=== PATIENT | female | born 1960 | race Caucasian/White ===

== ENCOUNTER → 2017-08-08 | Outpatient (CLI) | payer BC ==
--- NOTE | 2017-08-08 17:31 | RAD ---
DATE: 08/08/2017. EXAM: MAMMO NITHYA SCREENING BILATERAL. HISTORY: Routine mammographic screening. COMPARISON: 07/03/2016, 06/16/2015. This study was interpreted with the benefit of Computerized Aided Detection (CAD). FINDINGS: The breast parenchyma shows scattered fibroglandular densities. Breast parenchyma level B.. There are no suspicious masses, microcalcifications or architectural distortion. Small nodules laterally on the right and posteriorly inferiorly on the left are stable. Scattered calcifications are benign. BI-RADS CATEGORY: 2 BENIGN FINDING(S). RECOMMENDED FOLLOW-UP: 12M 12 MONTH FOLLOW-UP. PQRS compliance statement: Patient information was entered into a reminder system with a target due date 08/08/2018 for the next mammogram. Mammography is a sensitive method for finding small breast cancers, but it does not detect them all and is not a substitute for careful clinical examination. A negative mammogram does not negate a clinically suspicious finding and should not result in delay in biopsying a clinically suspicious abnormality. "Our facility is accredited by the [employer] Mammography [employer]."
== END | disposition home or self-care (01) ==
LOC: MAMMO 07:45
PROVIDERS: ATTEND Specialist
DX: Z12.31 Encounter for screening mammogram for malignant neoplasm of breast (principal)
CPT/HCPCS: 77063; G0202; 77067

== ENCOUNTER → 2018-10-08 | Outpatient (CLI) | payer BC ==
--- NOTE | 2018-10-08 15:01 | RAD ---
DATE: 10/08/2018 11:00 AM EXAM: MAMMO NITHYA SCREENING BILATERAL HISTORY: routine screening evaluation COMPARISON: Prior mammographic imaging dating back to 06/16/15 Bilateral CC and MLO views of the breasts were performed. Bilateral breast tomosynthesis was performed in CC and MLO projections. This study was interpreted with the benefit of Computerized Aided Detection (CAD ). Breast Density: The breast parenchyma shows scattered fibroglandular densities. Breast parenchyma level B. FINDINGS: Benign calcifications are present. The parenchymal pattern appears stable. No suspicious masses, microcalcifications or architectural distortion is present to suggest malignancy in either breast. Nodularity at the inferior, lateral aspect of the right breast is stable to at least 06/16/2015. The visualized axillae are unremarkable. IMPRESSION: No mammographic evidence of malignancy. BI-RADS CATEGORY: 2 BENIGN FINDING(S) RECOMMENDED FOLLOW-UP: 12M 12 MONTH FOLLOW-UP Annual screening mammography is recommended, unless clinically indicated sooner based on symptoms or change in physical exam. PQRS compliance statement: Patient information was entered into a reminder system with a target due date 10/08/2019 for the next mammogram. Mammography is a sensitive method for finding small breast cancers, but it does not detect them all and is not a substitute for careful clinical examination. A negative mammogram does not negate a clinically suspicious finding and should not result in delay in biopsying a clinically suspicious abnormality. "Our facility is accredited by the [employer] Mammography [employer]." MARITAD
== END | disposition home or self-care (01) ==
LOC: MAMMO 09:03
PROVIDERS: ATTEND Specialist
DX: Z12.31 Encounter for screening mammogram for malignant neoplasm of breast (principal)
CPT/HCPCS: 77063; 77067

== ENCOUNTER 2019-12-28 19:26 | Emergency (ER) | payer BC ==
[~2019-12-28] VITALS: Ht 172.7 cm; Wt 100.0 kg
[2019-12-28] MEDS ORDERED: ONDANSETRON ODT 4 MG TAB.RAPDIS PO ONE (20:15)
[2019-12-28] MEDS ORDERED: HYDROcodone/APAP 5/325MG 1 TAB TABLET PO ONE (20:15)
--- NOTE | 2019-12-28 21:05 | RAD ---
EXAM: AP, oblique and lateral views right knee DATE: 12/28/2019 7:26 PM INDICATION: Right knee pain, fall, injury COMPARISON: No Prior FINDINGS/ IMPRESSION: There is an oblique fracture through the distal right femur extending from the medial distal femoral diametaphysis extending into the intercondylar notch without significant displacement. Small to moderate lipohemarthrosis. Electronically signed by: Jerry Gooden MD (12/28/2019 9:02 PM) [id number]
[2019-12-28 22:15] LABS: BASO % 0 % (0-3); EOS % 0 % (0-3); HEMATOCRIT 43.3 % (36.0-47.0); HEMOGLOBIN 14.3 g/dL (12.0-15.5); LYMPH # 0.9 x10^3/uL (1.0-4.8); LYMPH % 10 % (24-48); MEAN CORPUSCULAR HEMOGLOBIN 29 pg (25-35); MEAN CORPUSCULAR HGB CONC 33 g/dL (31-37); MEAN CORPUSCULAR VOLUME 88 fL (79-100); MONO # 0.6 x10^3/uL (0.0-1.1); MONO % 6 % (0-9); NEUT # 7.8 x10^3uL (1.8-7.7); NEUT % 84 % (31-73); PLATELET COUNT 235 x10^3/uL (140-400); RED CELL DISTRIBUTION WIDTH 13.4 % (11.5-14.5); WHITE BLOOD COUNT 9.3 x10^3/uL (4.0-11.0)
[2019-12-28 22:28] VITALS: BP 128/74
[2019-12-28 22:31] LABS: CALCIUM 9.2 mg/dL (8.5-10.1); GFR 56.7
--- NOTE | 2019-12-28 22:37 | PHYS DOC ---
Past History Past Medical History: No Pertinent History Past Surgical History: Hysterectomy Alcohol Use: Rarely Adult General Chief Complaint Chief Complaint: LOWEREXTREMITY INJURY HPI HPI Patient is a 59-year-old female presenting with knee pain. She slipped down 6 steps in her house she was having trouble walking she just lost missed a step no other past medical history no daily medications are otherwise healthy did not hit her head no neck pain no back pain just the knee pain no hip pain she tells me. Pain is moderate to severe unable to ambulate Review of Systems Review of Systems Constitutional: Denies fever or chills [] Eyes: Denies change in visual acuity, redness, or eye pain [] HENT: Denies nasal congestion or sore throat [] Respiratory: Denies cough or shortness of breath [] Neurologic: Denies headache, focal weakness or sensory changes [] Endocrine: Denies polyuria or polydipsia [] All other systems were reviewed and found to be within normal limits, except as documented in this note. Current Medications Current Medications Current Medications Medications (Trade) Dose Ordered Sig/Naomi Start Time Stop Time Status Last Admin Dose Admin Acetaminophen/ Hydrocodone Bitart (Lortab 5/325) 2 tab 1X ONCE 12/28/19 20:15 12/28/19 20:52 DC 12/28/19 20:15 2 TAB Fentanyl Citrate (Fentanyl 2ml Vial) 50 mcg 1X ONCE 12/28/19 21:30 12/28/19 21:35 DC 12/28/19 21:30 50 MCG Ondansetron HCl (Zofran Odt) 4 mg 1X ONCE 12/28/19 20:15 12/28/19 20:52 DC 12/28/19 20:15 4 MG Allergies Allergies Allergies Coded Allergies Type Severity Reaction Last Updated Verified No Known Drug Allergies 12/28/19 No Physical Exam Physical Exam Constitutional: Well developed, well nourished, no acute distress, non-toxic appearance. [] HENT: Normocephalic, atraumatic, bilateral external ears normal, oropharynx moist, no oral exudates, nose normal. [] Eyes: PERRLA, EOMI, conjunctiva normal, no discharge. [] Neck: Normal range of motion, no tenderness, supple, no stridor. [] Cardiovascular:Heart rate regular rhythm, no murmur [] Lungs & Thorax: Bilateral breath sounds clear to auscultation [] Abdomen: Bowel sounds normal, soft, no tenderness, no masses, no pulsatile masses. [] Skin: Warm, dry, no erythema, no rash. [] Back: No tenderness, no CVA tenderness. [] Extremities: Tenderness to palpation deformity noted at the right knee as well as just above the right knee. Pedal pulses intact distally sensation is intact distally the compartments are soft. [] Neurologic: Alert and oriented X 3, normal motor function, normal sensory function, no focal deficits noted. [] Psychologic: Affect normal, judgement normal, mood normal. [] Current Patient Data Vital Signs Vital Signs Date Time Temp Pulse Resp B/P (MAP) Pulse Ox O2 Delivery O2 Flow Rate FiO2 12/28/19 22:28 81 16 128/74 (92) 98 Room Air 12/28/19 20:28 98.2 Lab Results Laboratory Tests Test 12/28/19 21:45 White Blood Count 9.3 x10^3/uL (4.0-11.0) Red Blood Count 4.90 x10^6/uL (3.50-5.40) Hemoglobin 14.3 g/dL (12.0-15.5) Hematocrit 43.3 % (36.0-47.0) Mean Corpuscular Volume 88 fL (79-100) Mean Corpuscular Hemoglobin 29 pg (25-35) Mean Corpuscular Hemoglobin Concent 33 g/dL (31-37) Red Cell Distribution Width 13.4 % (11.5-14.5) Platelet Count 235 x10^3/uL (140-400) Neutrophils (%) (Auto) 84 % (31-73) H Lymphocytes (%) (Auto) 10 % (24-48) L Monocytes (%) (Auto) 6 % (0-9) Eosinophils (%) (Auto) 0 % (0-3) Basophils (%) (Auto) 0 % (0-3) Neutrophils # (Auto) 7.8 x10^3uL (1.8-7.7) H Lymphocytes # (Auto) 0.9 x10^3/uL (1.0-4.8) L Monocytes # (Auto) 0.6 x10^3/uL (0.0-1.1) Eosinophils # (Auto) 0.0 x10^3/uL (0.0-0.7) Basophils # (Auto) 0.0 x10^3/uL (0.0-0.2) Sodium Level 142 mmol/L (136-145) Potassium Level 4.0 mmol/L (3.5-5.1) Chloride Level 105 mmol/L (98-107) Carbon Dioxide Level 28 mmol/L (21-32) Anion Gap 9 (6-14) Blood Urea Nitrogen 9 mg/dL (7-20) Creatinine 1.0 mg/dL (0.6-1.0) Estimated GFR (Cockcroft-Gault) 56.7 Glucose Level 108 mg/dL (70-99) H Calcium Level 9.2 mg/dL (8.5-10.1) EKG EKG [] Radiology/Procedures Radiology/Procedures [] Impressions: IMPRESSION: There is an oblique fracture through the distal right femur extending from the medial distal femoral diametaphysis extending into the intercondylar notch without significant displacement. Small to moderate lipohemarthrosis. Electronically signed by: Jerry Gooden MD (12/28/2019 9:02 PM) [id number] DICTATED AND SIGNED BY: JERRY GOODEN MD DATE: 12/28/192101 CC: EMMA TAYLOR MD; CRISTINA DURANT MD ~ Course & Med Decision Making Course & Med Decision Making Pertinent Labs and Imaging studies reviewed. (See chart for details) [] 59-year-old female presenting with oblique fracture distal femur isolated injury I spoke with Dr. Carter who wants the patient to be transferred to [facility] for admission for surgery tomorrow. I spoke with Dr. Huddleston who accepted the patient at 10:15 PM gaVE PT pain meds in er knee immoblizier advised of plan she is agreeable Dragon Disclaimer Dragon Disclaimer This electronic medical record was generated, in whole or in part, using a voice recognition dictation system. Departure Departure: Impression: Primary Impression: Femur fracture Disposition: XFER SHT-TRM HOSP Condition: STABLE Referrals: CRISTINA DURANT MD (PCP) EMMA TAYLOR MD Dec 28, 2019 22:37
--- NOTE | 2019-12-29 00:08 | RAD ---
EXAM: AP and lateral views right femur DATE: 12/28/2019 8:13 PM INDICATION: Right femur pain, fall COMPARISON: No Prior FINDINGS/ IMPRESSION: Oblique fracture distal femur with intra-articular extension is essentially nondisplaced. Mild associated soft tissue swelling. No definite proximal right femoral fracture is seen. Electronically signed by: Jerry Gooden MD (12/29/2019 12:05 AM) [id number]
[2019-12-29] MEDS ORDERED: MORPHINE SULFATE 4 MG/ML DISP.SYRIN. IV ONE (00:30)
[2019-12-29] MEDS ORDERED: ONDANSETRON PF 4 MG/2 ML VIAL. IVP ONE (00:30)
[2019-12-29] MEDS ORDERED: ONDANSETRON PF 4 MG/2 ML VIAL. ONE (00:32)
[2019-12-29] MEDS ORDERED: MORPHINE SULFATE 4 MG/ML DISP.SYRIN. ONE (00:32)
== END 2019-12-29 00:44 | disposition short-term general hospital (02) ==
LOC: ER 19:26
DX: S72.401A Unspecified fracture of lower end of right femur, initial encounter for closed fracture (principal); W10.8XXA Fall (on) (from) other stairs and steps, initial encounter; Y93.89 Activity, other specified; Y92.89 Other specified places as the place of occurrence of the external cause; Y99.8 Other external cause status
CPT/HCPCS: 29505; 36415; 73552; 73562; 80048; 85025; 96374; 96375; 99285; J2270; J2405; J3010; Q0162

== ENCOUNTER → 2020-01-12 | Outpatient (CLI) | payer BC ==
[2019-12-28 22:28] VITALS: BP 128/74
--- NOTE | 2020-01-12 10:09 | RAD ---
Examination: RIGHT FEMUR XRAY History: 2 weeks postoperative status post right femoral fracture Comparison/Correlation: 12/28/2019 right femur x-ray exam Findings: Frontal and lateral views of the right femur were obtained. Plate at the distal medial margin of the right femur is present with multiple associated screws. Oblique fracture is present involving distal femoral shaft and diametaphyseal region at the level of the plate and screws in the interval since the previous exam with no callus formation. There are no suspicious proximal findings. Right hip joint space is adequate. Impression: ORIF of the distal right femoral fracture. There are new fracture lines evident however at the distal right femoral diametaphyseal region since the previous exam of 12/28/2019. This is at the level of the plate and associated screws however. Correlate with surgical history. Electronically signed by: Faheem Barnhart MD (01/12/2020 10:06 AM) [id number]
== END | disposition home or self-care (01) ==
LOC: DXRAD 08:30
PROVIDERS: ATTEND Physician Assistant
DX: S72.491A Other fracture of lower end of right femur, initial encounter for closed fracture (principal); X58.XXXA Exposure to other specified factors, initial encounter; Y93.89 Activity, other specified; Y92.89 Other specified places as the place of occurrence of the external cause; Y99.8 Other external cause status
CPT/HCPCS: 73552

== ENCOUNTER 2020-01-31 12:42 | Emergency (ER) | payer BC ==
[~2020-01-31] VITALS: Ht 172.7 cm; Wt 100.0 kg
[~2020-01-31 12:42] MED LIST: EPINEPHrine SYRINGE 1 MG/10 ML SYRINGE ONE; SODIUM BICARBONATE 50 MEQ/50 ML VIAL. ONE
--- NOTE | 2020-01-31 13:40 | PHYS DOC ---
Past History Past Medical History: No Pertinent History Past Surgical History: Hysterectomy Alcohol Use: Rarely General Adult EDM: Chief Complaint: CPR/FULL ARREST HPI: HPI: 59-year-old female presents via EMS as a CODE BLUE. The patient had a witnessed event at home. She collapsed and family began CPR. When EMS arrived they took over CPR and continued until they reached the hospital. She was given 6 rounds of epinephrine in route. She was intubated prior to arrival. EMS reports good bagging with bilateral breath sounds. The patient was reported to have had knee surgery recently and was not taking her anticoagulant medication as prescribed. No other known acute illness. Patient has no reported history of cardiac or pulmonary disease. Review of Systems: Review of Systems: Unable to perform due to being unresponsive Heart Score: Risk Factors: Risk Factors: DM, Current or recent (<one month) smoker, HTN, HLP, family history of CAD, obesity. Risk Scores: Score 0 - 3: 2.5% MACE over next 6 weeks - Discharge Home Score 4 - 6: 20.3% MACE over next 6 weeks - Admit for Clinical Observation Score 7 - 10: 72.7% MACE over next 6 weeks - Early Invasive Strategies Allergies: Allergies: Allergies Coded Allergies Type Severity Reaction Last Updated Verified No Known Drug Allergies 12/28/19 No Physical Exam: PE: Constitutional: Well developed, well nourished, severe acute distress, chest compression device in place [] [] Eyes: Pupils fixed and dilated, no corneal reflex [] Neck: Normal range of motion [] Cardiovascular: PEA [] Lungs & Thorax: Bilateral breath sounds with bag valve artificial breaths [] Abdomen: soft, no masses, no pulsatile masses. [] Skin: Cool, dusky [] [] Extremities: Right knee in immobilizer, no signs of trauma [] Neurologic: Unresponsive, pupils fixed and dilated, no corneal reflex [] [] EKG: EKG: [] Radiology/Procedures: Radiology/Procedures: [] Course & Med Decision Making: Course & Med Decision Making Pertinent Labs and Imaging studies reviewed. (See chart for details) On arrival, the patient had a chest compression device that was in good position and functioning. Her ET tube appeared to be in place. We had no difficulty bagging. There were bilateral breath sounds. We performed an additional 5 rounds of epinephrine and 3 rounds of bicarb. We got brief periods of an organized heart rhythm, but the patient never had a pulse in the ED. Her total downtime was in excess of 40 minutes. After all of these efforts, it was determined that the patient had . Time of 1258. 57 minutes of critical care time was spent on this patient exclusive of other billable procedures. [] Dragon Disclaimer: Dragon Disclaimer: This electronic medical record was generated, in whole or in part, using a voice recognition dictation system. Departure Departure: Impression: Primary Impression: Respiratory failure Qualified Codes: J96.00 - Acute respiratory failure, unspecified whether with hypoxia or hypercapnia Additional Impression: Disposition: 20 Condition: Referrals: CRISTINA DURANT MD (PCP) LINDA LAZARO DO Jan 31, 2020 13:40
[2020-02-04 11:07] LABS: RVP ADENOVIRUS Negative (Negative); RVP INFLUENZA A Negative (Negative); RVP INFLUENZA B Negative (Negative); RVP MATAPNEUMOVIRUS Negative (Negative); RVP PARAINFLUENZA 2 Negative (Negative); RVP PARAINFLUENZA 3 Negative (Negative); RVP RHINOVIRUS Negative (Negative); RVP RSV A Negative (Negative); RVP RSV B Negative (Negative)
== END 2020-01-31 23:17 | disposition expired ==
LOC: ER 12:42
DX: J96.00 Acute respiratory failure, unspecified whether with hypoxia or hypercapnia (principal)
CPT/HCPCS: 87633; 92950; 99285; J0171